=== PATIENT | female | born 1980 | race Caucasian/White ===

== ENCOUNTER → 2016-09-05 | Day surgery (SDC) | payer OTHER ==
[~2016-09-05] MED LIST: EFFEXOR-XR150 MG PO; FEMHRT 0.5 MG/21 TAB PO; IBUPROFEN PO; PAIN MEDICATION; TORADOL10 MG PO; ZOLOFT PO
--- NOTE | ~2016-09-05 | OR ---
Unit #: [id number] #: [id number] Patient: RICK OROZCO [id number] [address] [place], [place] [address] [id number] MR#: [id number] NAME: RICK OROZCO ROOM: Date of Procedure: 09/05/2016 Admission Date: 09/05/2016 Surgeon: Trey Blake M.D. : 1980 Attending Physician: Trey Blake M.D. Referring Physician: Trey Blake M.D. Primary Care Physician: Primary Care Physician No OPERATIVE REPORT PREOPERATIVE DIAGNOSIS Left ureteral calculus. POSTOPERATIVE DIAGNOSES Left ureteral calculus, passed, with multiple small renal calculi ipsilateral. PROCEDURES PERFORMED Cystoscopy, left rigid and flexible ureteroscopy, basket extraction of renal calculus, stent placement. ANESTHESIA General with local supplementation. INDICATIONS FOR PROCEDURE This 35-year-old woman presented to the office this morning symptomatic for over 4 days with hematuria and flank pain. She had a documented 4-mm stone in the distal left ureter on CT scan. DESCRIPTION OF PROCEDURE The patient was given preoperative antibiotics and satisfactory general anesthesia. She was positioned in dorsal lithotomy and the genitalia were prepped and draped. The 21-Vietnamese rigid cystoscope was introduced with a 30-degree lens and video noting the left ureteral orifice to appear normal to larger than normal, but not acutely inflamed and not bleeding. There was no evidence of stone in the bladder. A Sensor guidewire was passed up the ureter and appeared to pass a calcification in the distal ureter. I passed Lubriglide dilators sizes 8 and 10 and then passed the rigid ureteroscope carefully next to the guidewire, so as not to irrigate a stone out of position. There was a focal spastic narrowing at the proximal ureteral tunnel, but no evidence of a calculus in this location. The rigid ureteroscope passed easily beyond this level all the way to the upper ureter where no stone was seen. I pulled the ureteroscope out slowly distending the distal segment of ureter to be sure the stone had not been impacted into the wall. Leaving the guidewire, it was thought best to additionally perform flexible ureteroscopy to assure against back migration to the kidney. The flexible ureteroscope was then passed up to the kidney without difficulty over the solitary guidewire and the entire kidney examined finding only fixed calcifications in the lower pole, which in retrospect were seen on CT scan. The two smaller ones were truly miniscule and would not be moved by manipulation. The largest I was able to basket extract or at least part of it, which was delivered for Unit #: [id number] #: [id number] Patient: RICK OROZCO specimen. The cystoscope was replaced and the guidewire replaced and a 28 x 5 double-J stent internally deployed with an external tether, which was knotted, shortened, and tucked within the vagina. A Uro-Jet was applied to complete the procedure. A 4-day followup with stent removal in [place] is offered as well as analgesia and antibiotics. Stone sent for chemical analysis. Dictated by... Renea Acosta/giorgio TD: 09/05/2016 18:10 JOB #: [id number] OPERATIVE REPORT Page 1 of 1 X Trey Blake MD X PROCEDURE OPERATIVE NOTE
== END | disposition home or self-care (01) ==
LOC: CSUR 11:00
PROVIDERS: Urology
DX: N20.1 Calculus of ureter (principal); F41.9 Anxiety disorder, unspecified; F32.9 Major depressive disorder, single episode, unspecified; F17.210 Nicotine dependence, cigarettes, uncomplicated; Z79.899 Other long term (current) drug therapy; Z88.1 Allergy status to other antibiotic agents; Z87.442 Personal history of urinary calculi; Z90.710 Acquired absence of both cervix and uterus; Z98.890 Other specified postprocedural states
CPT/HCPCS: 82365; 88300; J0690; J1100; J1885; J2250; J2405; J2710; J3010